=== PATIENT | female | born 1995 | race African-American/Black ===

== ENCOUNTER 2018-11-30 19:14 | Emergency (ER) | payer MEDICAID ==
[~2018-11-30] VITALS: Ht 154.9 cm; Wt 123.0 kg
[2018-11-30] MEDS ORDERED: IPRATROPIUM BROMIDE (0.02%) 0.5MG/2.5ML NEB HHN STA (23:23)
[2018-11-30] MEDS ORDERED: ALBUTEROL (0.083%) 2.5MG/3ML NEB HHN STA (23:23)
[2018-12-01 01:50] VITALS: BP 138/89
== END 2018-12-01 01:50 | disposition home or self-care (01) ==
LOC: ER 19:14
DX: J32.9 Chronic sinusitis, unspecified (principal); F17.200 Nicotine dependence, unspecified, uncomplicated; Z98.890 Other specified postprocedural states; Z88.0 Allergy status to penicillin
CPT/HCPCS: 71045; 81025; 94640; 99283; J7611

== ENCOUNTER 2025-01-07 06:56 | Emergency (ER) | payer MEDICAID ==
[~2025-01-07] VITALS: Ht 152.4 cm; Wt 127.0 kg
[2025-01-07 07:00] VITALS: BP 151/91; TEMP 36.9; O2SAT 99
[2025-01-07 07:04] VITALS: PULSE 99; RESP 19; O2SAT 99
[2025-01-07] MEDS ORDERED: ALBUTEROL (0.083%) 2.5MG/3ML NEB HHN STA (07:11)
[2025-01-07] MEDS ORDERED: P50 MT (07:22)
[2025-01-07] MEDS ORDERED: ALBU18HF2 IH (07:22)
[2025-01-07] MEDS: PREDNISONE 20MG TABLET PO ONE (07:33)
== END 2025-01-07 07:47 | disposition home or self-care (01) ==
LOC: ER 06:56
DX: J45.901 Unspecified asthma with (acute) exacerbation (principal); Z88.0 Allergy status to penicillin
CPT/HCPCS: 99283; J7512

== ENCOUNTER 2025-01-28 02:10 | Emergency (ER) | payer MEDICAID ==
[~2025-01-28] VITALS: Ht 157.5 cm; Wt 143.3 kg
[~2025-01-28 02:10] MED LIST: ALBU18HF2 IH; P50 MT
[2025-01-28 02:30] VITALS: O2SAT 98
[2025-01-28 02:32] VITALS: BP 143/78; PULSE 100; RESP 14; TEMP 37.2; O2SAT 97
== END 2025-01-28 06:56 | disposition left against medical advice (07) ==
LOC: ER 02:10
DX: J45.901 Unspecified asthma with (acute) exacerbation (principal); Z53.21 Procedure and treatment not carried out due to patient leaving prior to being seen by health care provider

== ENCOUNTER 2025-01-30 21:34 | Emergency (ER) | payer MEDICAID ==
[~2025-01-30] VITALS: Ht 154.9 cm; Wt 127.0 kg
[2025-01-30 21:36] VITALS: O2SAT 99
[2025-01-30 21:44] VITALS: BP 135/99; TEMP 37; O2SAT 100
[2025-01-30] MEDS ORDERED: IPRATROPIUM/ALBUTEROL 0.5-3(2.5)MG/3ML NEB HHN ONE (22:15)
[2025-01-30] MEDS ORDERED: METHYLPREDNISOLONE 40MG/ML INJ IV ONE (22:15)
[2025-01-30 22:20] VITALS: PULSE 80; RESP 22
[2025-01-30] MEDS ORDERED: IPRATROPIUM/ALBUTEROL 0.5-3(2.5)MG/3ML NEB HHN NR (22:30)
[2025-01-30] MEDS: METHYLPREDNISOLONE SOD SUCC 125MG/2ML (ACT-O-VIAL) IM NR (22:31)
[2025-01-30] MEDS ORDERED: ALBU2.5V13 NEB (23:43)
[2025-01-30] MEDS ORDERED: PRED5TAB48 MT (23:43)
== END 2025-01-31 00:08 | disposition home or self-care (01) ==
LOC: ER 21:34
DX: J45.901 Unspecified asthma with (acute) exacerbation (principal); Z79.52 Long term (current) use of systemic steroids; Z79.899 Other long term (current) drug therapy; Z98.890 Other specified postprocedural states; Z88.6 Allergy status to analgesic agent; Z88.1 Allergy status to other antibiotic agents; Z88.0 Allergy status to penicillin
CPT/HCPCS: 71045; 94640; 96372; 99283; J2919; Z7610 ×3; J2920